=== PATIENT | male | born 1995 | race Caucasian/White ===

== ENCOUNTER 2016-08-06 17:27 | Emergency (ER) | payer OTHER ==
[~2016-08-06] VITALS: Ht 176.5 cm; Wt 60.0 kg
[2016-08-06 18:05] VITALS: Ht 176.5 cm; Wt 60.0 kg
[2016-08-06] MEDS ORDERED: ONDANSETRON INJ 2 MG/ML 2 ML VIAL IV STA (18:55)
[2016-08-06] MEDS ORDERED: LIDOCAINE/EPINEPHRINE 1% 20 ML VIAL INFIL STA (18:55)
[2016-08-06] MEDS ORDERED: SODIUM CHLORIDE 0.9% 1000ML 1,000 ML IV STA (18:55)
[2016-08-06] MEDS ORDERED: MoRPHine SULFATE 10 MG/ML CARP/VIAL IV STA (18:55)
[2016-08-06] MEDS ORDERED: ACET-1256 PO (19:13)
--- NOTE | 2016-08-06 19:17 | EMERGENCY ROOM VISIT NOTE ---
History Report prepared by Jimmy: Estee Mota Under the Supervision of: Dr. Galdino Malloy M.D. First contact with patient: 18:48 Chief Complaint: KNEEPAIN Stated Complaint: SWOLLEN LEFT KNEE History of Present Illness The patient is a 21 year old male who presents to the Emergency Room with complaints of worsening left knee pain beginning earlier this morning. 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 He stood for 46 hours but states that his left knee started bothering him early this morning. He notes swelling to the left knee and pain that he rates as a 6/10 in severity. He has been applying ice to the area since 6am. Movement exacerbates his pain and he is unable to bend his knee. The patient denies any recent falls or injury to the knee. He denies any metal implants in his body and any history of IV drug use. The patient denies any personal or family history of gout. Source of History: patient, parent Onset: [employer] Position: knee (left) Symptom Intensity: 6/10 Quality: other (swelling) Timing: worsening Modifying Factors (Worsening): movement, other (standing for 46 hours) Modifying Factors (Relieving): ice Review of Systems See HPI for pertinent positives & negatives. A total of 10 systems reviewed and were otherwise negative. Past Medical & Surgical Medical Problems: (1) Hx of unilateral nephrectomy Family History No pertinent history stated. Social History Smoking Status: Never Smoker Marital Status: single Housing Status: lives with roommate Occupation Status: [employer] student Current/Historical Medications Scheduled Methylprednisolone (Medrol Dosepak), 1 PKT PO UD Scheduled PRN Acetaminophen (Tylenol), 1,000 MG PO Q6 PRN for Pain Oxycodone/Acetaminophen 5MG/325MG (Percocet 5MG/325MG), 1-2 TAB PO Q4H PRN for Pain Allergies Coded Allergies: Nut Tree (Unverified Allergy, Unknown, LIPS AND TONGUE SWELL, 08/06/16) Physical Exam Vital Signs Date Time Temp Pulse Resp B/P Pulse Ox O2 Delivery O2 Flow Rate FiO2 08/06/16 23:06 94 16 113/84 93 08/06/16 21:28 37.1 118 16 123/68 96 08/06/16 20:16 37.7 102 16 122/74 100 Room Air 08/06/16 18:05 37.4 111 18 124/84 100 Room Air Physical Exam GENERAL: Patient is a healthy-appearing well-nourished 21 year old male. HEAD: Normocephalic atraumatic EYES: Ocular movements intact pupils equal and react to light OROPHARYNX mucous membranes are moist no exudates present no erythema or edema present NECK: Supple no nuchal rigidity CHEST: Good equal expansion LUNGS: Clear and equal to auscultation CARDIAC: Normal S1 and S2 ABDOMEN: Soft nontender no guarding BACK: No CVA tenderness EXTREMITIES: Left knee has a large amount of swelling present and there appears to be fluid present, no evidence of cellulitis. NEURO: Patient is following commands is answering questions appropriately. Alert and oriented x3 Cranial Nerves 2-12 grossly intact Medical Decision & Procedures ER Provider Diagnostic Interpretation: Radiology results as stated below per my review and radiologist interpretation: LEFT KNEE 1 OR 2 VIEWS ROUTINE CLINICAL HISTORY: Pt c/o left knee pain pain COMPARISON: None. DISCUSSION: The bones and joint spaces appear intact. There is no evidence of fracture, dislocation or bony disease. Considerable prepatellar soft tissue edema IMPRESSION: Prepatellar soft tissue edema. No acute bony abnormality. Electronically signed by: Adin Goldstein M.D. 08/06/2016 7:28 PM Dictated Date/Time: 08/06/2016 7:28 PM Laboratory Results 08/06/16 19:10 Red Blood Count 4.64, Mean Corpuscular Volume 90.9, Mean Corpuscular Hemoglobin 31.9, Mean Corpuscular Hemoglobin Concent 35.1, Mean Platelet Volume 9.4, Neutrophils (%) (Auto) 87.5, Lymphocytes (%) (Auto) 4.2, Monocytes (%) (Auto) 7.9, Eosinophils (%) (Auto) 0.0, Basophils (%) (Auto) 0.1, Neutrophils # (Auto) 20.59, Lymphocytes # (Auto) 0.99, Monocytes # (Auto) 1.86, Eosinophils # (Auto) 0.00, Basophils # (Auto) 0.02 08/06/16 19:10 Test 08/06/16 19:10 08/06/16 20:00 White Blood Count 23.54 K/uL (4.8-10.8) Red Blood Count 4.64 M/uL (4.7-6.1) Hemoglobin 14.8 g/dL (14.0-18.0) Hematocrit 42.2 % (42-52) Mean Corpuscular Volume 90.9 fL (80-100) Mean Corpuscular Hemoglobin 31.9 pg (25-34) Mean Corpuscular Hemoglobin Concent 35.1 g/dl (32-36) Platelet Count 192 K/uL (130-400) Mean Platelet Volume 9.4 fL (7.4-10.4) Neutrophils (%) (Auto) 87.5 % Lymphocytes (%) (Auto) 4.2 % Monocytes (%) (Auto) 7.9 % Eosinophils (%) (Auto) 0.0 % Basophils (%) (Auto) 0.1 % Neutrophils # (Auto) 20.59 K/uL (1.4-6.5) Lymphocytes # (Auto) 0.99 K/uL (1.2-3.4) Monocytes # (Auto) 1.86 K/uL (0.11-0.59) Eosinophils # (Auto) 0.00 K/uL (0-0.5) Basophils # (Auto) 0.02 K/uL (0-0.2) RDW Standard Deviation 43.5 fL (36.4-46.3) RDW Coefficient of Variation 13.0 % (11.5-14.5) Immature Granulocyte % (Auto) 0.3 % Immature Granulocyte # (Auto) 0.08 K/uL (0.00-0.02) Erythrocyte Sedimentation Rate 15 mm/hr (0-14) Anion Gap 8.0 mmol/L (3-11) Est Creatinine Clear Calc Drug Dose 82.6 ml/min Estimated GFR () 99.6 Estimated GFR (Non- 85.9 BUN/Creatinine Ratio 9.0 (10-20) Uric Acid 3.8 mg/dl (2.6-7.2) Calcium Level 9.0 mg/dl (8.5-10.1) Total Bilirubin 1.4 mg/dl (0.2-1) Direct Bilirubin 0.3 mg/dl (0-0.2) Aspartate Amino Transf (AST/SGOT) 33 U/L (15-37) Alanine Aminotransferase (ALT/SGPT) 38 U/L (12-78) Alkaline Phosphatase 73 U/L (45-117) C-Reactive Protein 12.90 mg/dl (0-0.29) Total Protein 7.6 gm/dl (6.4-8.2) Albumin 4.0 gm/dl (3.4-5.0) Thyroid Stimulating Hormone (TSH) 1.780 uIu/ml (0.300-4.500) Lyme Disease IgG Antibody NEG (NEG) Lyme Disease IgM Antibody NEG (NEG) Anti-Streptolysin O Antibody Screen NEG IU/ml (<200 IU) Synovial Fluid Source KNEE Synovial Fluid Color RED Synovial Fluid Appearance HAZY Synovial Fluid WBC 4989 /uL (0-200) Synovial Fluid RBC 48409 /uL Synovial Fluid Polynuclear WBCs % 77.1 % Synovial Fluid Mononuclear WBCs % 22.9 % Synovial Fluid Glucose 93 mg/dl Synovial Fluid Uric Acid 3.3 mg/dl Labs reviewed by ED physician. Medications Administered Medications (Trade) Dose Ordered Sig/Akash Route Start Time Stop Time Status Last Admin Dose Admin Sodium Chloride (Nss 1000ml) 1,000 ml @ 999 mls/hr Q1H1M STAT IV 08/06/16 18:55 08/06/16 19:55 DC 08/06/16 19:16 999 MLS/HR Morphine Sulfate (MoRPHine SULFATE INJ) 6 mg NOW STAT IV 08/06/16 18:55 08/06/16 18:58 DC 08/06/16 19:16 6 MG Ondansetron HCl (Zofran Inj) 4 mg NOW STAT IV 08/06/16 18:55 08/06/16 18:59 DC 08/06/16 19:16 4 MG Ceftriaxone Sodium (Rocephin Inj) 1 gm NOW STAT IV 08/06/16 20:02 08/06/16 20:05 DC 08/06/16 20:17 1 GM Vancomycin HCl (Vancomycin 1gm/ 270ml Nss) 1 gm NOW STAT IV 08/06/16 20:02 08/06/16 20:05 DC 08/06/16 20:45 1 GM Ketorolac Tromethamine (Toradol Inj) 30 mg NOW STAT IV 08/06/16 21:49 08/06/16 21:50 DC 08/06/16 22:10 30 MG Oxycodone/ Acetaminophen (Percocet 5/ 325MG Home Pack) 1 homepack UD ONCE PO 08/06/16 22:15 08/06/16 22:16 DC 08/06/16 23:10 1 HOMEPACK Procedure Left knee arthrocentesis Indication: Left knee swelling. Written consent was obtained after the risks and benefits were explained, including but not limited to bleeding, scarring, infection, pain, and bone/joint /nerve damage. The patient was prepped with Betadine. 1% lidocaine without epinephrine was injected into the left knee. 25CCs of bloody fluid was aspirated from the left knee. The patient tolerated the procedure well without complications. ED Course 1847: Past medical records reviewed. The patient was evaluated in room A12B. A complete history and physical examination was performed. 1854: Lidocaine/Epinephrine 10 ml Inj, Zofran 4 mg IV, Morphine sulfate 6 mg IV , NSS 1000 ml @ 999 mls/hr IV 1932: I updated the patient and his family on the treatment plan. I discussed the risks and benefits associated with an arthrocentesis of the left knee. The patient and his parents verbalized agreement with this treatment plan. 1941: At this time I performed an arthrocentesis of the patient's left knee. Please see the procedure note for further details. 2001: Vancomycin HCl 1 gm IV, Rocephin 1 gm IV 2148: Toradol 30 mg IV 2211: I reassessed the patient at this time. He is feeling better and resting comfortably. I discussed the results and treatment plan with the patient and his parents. I answered all pertaining questions that they had. They expressed understanding and verbalized agreement. The patient will be discharged home. 2214: Percocet 5/325 mg 1 homepack PO Medical Decision Differential diagnosis: Etiologies such as fracture, dislocation, neurovascular compromise, compartment syndrome, soft tissue injury, as well as others were entertained. This is a 21-year-old male complaining of left knee pain. 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 He is complaining of a large swollen left knee. Based on physical exam the knee was aspirated as above. Cultures were obtained. I did discuss the case with Dr. Lomeli. The patient was given prophylactic antibiotic sent emergency department including Rocephin as well as vancomycin. We do believe that the patient can be safely discharged home on crutches. He was given 1 dose of Toradol here in the emergency department. He was also read prescription for Medrol Dosepak but will hold off on starting that until his culture results return. The patient is going to follow-up with Dr. Lomeli's office. Both patient and parents were in agreement with the treatment plan. Impression Primary Impression: Knee pain Scribe Attestation The scribe's documentation has been prepared under my direction and personally reviewed by me in its entirety. I confirm that the note above accurately reflects all work, treatment, procedures, and medical decision making performed by me. Departure Information Dispostion Home / Self-Care Prescriptions Oxycodone/Acetaminophen 5MG/325MG (PERCOCET 5MG/325MG) Tab 1-2 TAB PO Q4H Y for Pain, #14 TAB Prov: Galdino Malloy MD 08/06/16 Methylprednisolone (MEDROL DOSEPAK) 4 Mg Gianni 1 PKT PO UD for 6 Days, #1 PKT Prov: Galdino Malloy MD 08/06/16 Referrals Herminio Lomeli M.D. Forms HOME CARE DOCUMENTATION FORM, IMPORTANT VISIT INFORMATION Patient Instructions Crutches Non Weight Bearing, My [facility], Uric Acid Synovial Fluid Additional Instructions Follow up with DR Lomeli's office Hold off on medrol dosepack until follow up You received narcotic or benzodiazepene medication while in the emergency room today. Do not drive, operate heavy machinery, or drink alcohol under the influence of this medication. Take Percocet for breakthrough pain You have been examined and treated today on an emergency basis only. This is not a substitute for, or an effort to provide, complete comprehensive medical care. It is impossible to recognize and treat all injuries or illnesses in a single emergency department visit. It is therefore important that you follow up closely with [facility]. Call as soon as possible for an appointment. Thank you for your time and consideration. I look forward to speaking with you again soon. Please don't hesitate to call us if you have any questions. Problem Qualifiers Primary Impression: Knee pain Laterality: left Chronicity: acute Qualified Codes: M25.562 - Pain in left knee
[2016-08-06 19:21] LABS: HEMATOCRIT 42.2 % (42-52); MEAN CELL VOLUME 90.9 fL (80-100); MEAN CORPUSCULAR HEMOGLOBIN 31.9 pg (25-34); MEAN CORPUSCULAR HGB CONC 35.1 g/dl (32-36); MEAN PLATELET VOLUME 9.4 fL (7.4-10.4); PLATELET COUNT 192 K/uL (130-400); RED BLOOD COUNT 4.64 M/uL (4.7-6.1); WHITE BLOOD COUNT 23.54 K/uL (4.8-10.8)
--- NOTE | 2016-08-06 19:30 | DIAGNOSTIC IMAGING REPORT ---
LEFT KNEE 1 OR 2 VIEWS ROUTINE CLINICAL HISTORY: Pt c/o left knee pain pain COMPARISON: None. DISCUSSION: The bones and joint spaces appear intact. There is no evidence of fracture, dislocation or bony disease. Considerable prepatellar soft tissue edema IMPRESSION: Prepatellar soft tissue edema. No acute bony abnormality. Electronically signed by: Adin Goldstein M.D. 08/06/2016 7:28 PM Dictated Date/Time: 08/06/2016 7:28 PM
[2016-08-06 19:38] LABS: C-REACTIVE PROTEIN 12.9 mg/dl (0-0.29); CREATININE 1.2 mg/dl (0.60-1.40); URIC ACID 3.8 mg/dl (2.6-7.2)
[2016-08-06 19:40] LABS: BASO % 0.1 %; BASO ABS # 0.02 K/uL (0-0.2); COMPLETE YES; IG% 0.3 %; LYMPH % 4.2 %; LYMPH ABS # 0.99 K/uL (1.2-3.4); MONO % 7.9 %; NEUT % 87.5 %
[2016-08-06 19:48] LABS: THYROID STIMULATING HORMONE 1.78 uIu/ml (0.300-4.500)
[2016-08-06] MEDS ORDERED: CEFTRIAXONE SOD INJ 1 GM ADDVIAL IV STA (20:02)
[2016-08-06] MEDS ORDERED: VANCOMYCIN 1GM/270ML NSS IV STA (20:02)
[2016-08-06 20:36] LABS: SYNOVIAL FLUID APPEARANCE HAZY; SYNOVIAL FLUID COLOR RED; SYNOVIAL FLUID MONONUC RELAT 22.9 %; SYNOVIAL FLUID POLYNUC RELAT 77.1 %
[2016-08-06 20:37] LABS: ANTI-STREP O SCR: 5YRS OR > NEG IU/ml (<200 IU)
[2016-08-06 20:56] LABS: SYNOVIAL FLUID URIC ACID 3.3 mg/dl
[2016-08-06 21:25] LABS: LYME DISEASE AB IGG NEG (NEG); LYME DISEASE AB IGM NEG (NEG)
[2016-08-06 21:28] VITALS: TEMP 37.1
[2016-08-06] MEDS ORDERED: KETOROLAC TROMETHAMINE 30 MG/ML VIAL IV STA (21:49)
[2016-08-06] MEDS ORDERED: METH4PAK PO (22:09)
[2016-08-06] MEDS ORDERED: OXYC-57 PO (22:09)
[2016-08-06] MEDS ORDERED: PERCOCET HOME PACK PO ONE (22:15)
[2016-08-06 23:06] VITALS: BP 113/84; PULSE 94; O2SAT 93
[2016-08-09 20:22] LABS: LYME DNA PCR CSF OR SYNOVIAL Not detected (Not Detected); LYME DNA SOURCE Synovial Fluid
== END 2016-08-06 23:15 | disposition home or self-care (01) ==
LOC: C.EDB 17:28 → C.EDA 23:15
DX: M25.562 Pain in left knee (principal); M79.89 Other specified soft tissue disorders; Z90.5 Acquired absence of kidney